=== PATIENT | female | born 1940 | race Two or more races ===

== ENCOUNTER 2021-01-12 08:15 | Inpatient (IN) | payer OTHER ==
[~2021-01-12] VITALS: Ht 157.5 cm; Wt 74.8 kg
[2021-01-12] MEDS ORDERED: TENORMIN50 M1 (13:30)
[2021-01-12] MEDS ORDERED: COZAAR25 MG (13:30)
[2021-01-12] MEDS ORDERED: LIPITOR40 MG (13:31)
[2021-01-17] MEDS ORDERED: ALENDRONATE SOD70 MG (07:54)
[2021-01-17] MEDS ORDERED: OMEPRAZOLE40 MG (07:54)
[2021-01-17] MEDS ORDERED: HYDROCHLOROTH12.5 MG (07:54)
[2021-01-17] MEDS ORDERED: DICLOFENAC SODI75 MG (07:54)
[2021-01-17] MEDS ORDERED: VITAMIN D3250 MCG (07:54)
[2021-01-17] MEDS ORDERED: NORVASC2.5 MG (07:54)
== END 2021-01-19 18:06 | DRG 470 ==
LOC: O/R 01-17 07:00 → SURH 01-17 07:00 → EDBD 01-17 08:15 → SURH 01-17 10:52
PROVIDERS: ADMIT Orthopaedic Surgery; ATTEND Orthopaedic Surgery
PROC: 0SRD0J9 Replacement of Left Knee Joint with Synthetic Substitute, Cemented, Open Approach (ICD-10-PCS; principal; 2021-01-17 07:00)
DX: M17.12 Unilateral primary osteoarthritis, left knee (principal); I10 Essential (primary) hypertension